=== PATIENT | male | born 1945 | race Caucasian/White ===

== ENCOUNTER → 2017-10-20 | Outpatient (CLI) | payer MEDICARE, OTHER ==
[~2017-10-20] MED LIST: ASCO500 PO; Advil200 M1 PO; DOCU100 PO; FLONASE ALLERG9.9 ML NS; Fish Oil Conce1 EACH PO; Glucosamine Ch1 EAC4 PO; HYDCHL12.5 PO; MAGCHL64ER; MELA3 PO; Metamucil Smooth1 EA PO; PROAIR RESPICL90 MCG; Prinivil10 MG PO; Ranitidine HCl300 M1 PO; Vitamin D2000 UNIT PO
== END | disposition home or self-care (01) ==
LOC: LAB SHORT 07:44 → PLD 07:44
DX: L72.0 Epidermal cyst (principal)
CPT/HCPCS: 88304

== ENCOUNTER 2017-12-31 08:20 | Day surgery (SDC) | payer MEDICARE, OTHER ==
[~2017-12-31] VITALS: Ht 172.7 cm; Wt 96.7 kg
== END 2017-12-31 10:44 | disposition home or self-care (01) ==
LOC: ORSCSDS 08:20
PROVIDERS: Internal Medicine Gastroenterology
PROC: 0DBH8ZX Excision of Cecum, Via Natural or Artificial Opening Endoscopic, Diagnostic (ICD-10-PCS; principal; 2017-12-31 09:45)
PROC: 0DBM8ZX Excision of Descending Colon, Via Natural or Artificial Opening Endoscopic, Diagnostic (ICD-10-PCS; principal; 2017-12-31 09:45)
PROC: 0DBN8ZX Excision of Sigmoid Colon, Via Natural or Artificial Opening Endoscopic, Diagnostic (ICD-10-PCS; principal; 2017-12-31 09:45)
DX: Z12.11 Encounter for screening for malignant neoplasm of colon (principal); Z86.010 Personal history of colon polyps; D12.0 Benign neoplasm of cecum; D12.4 Benign neoplasm of descending colon; D12.5 Benign neoplasm of sigmoid colon; K57.30 Diverticulosis of large intestine without perforation or abscess without bleeding; K59.00 Constipation, unspecified; I10 Essential (primary) hypertension; Z79.899 Other long term (current) drug therapy
CPT/HCPCS: 88305; J7120

== ENCOUNTER 2019-06-17 06:09 | Day surgery (SDC) | payer MEDICARE, OTHER ==
[~2019-06-17] VITALS: Ht 172.7 cm; Wt 95.0 kg
--- NOTE | 2019-06-17 08:40 | NUR ---
06/17/19 0840 Juanita Hunt PT WITH OWN SLING FOR HOME FROM LAST SURGERY.
[2019-07-07] MEDS ORDERED: FURO20 PO (09:43)
[2019-07-07] MEDS ORDERED: POTA10T PO (09:44)
== END 2019-06-17 08:41 | disposition home or self-care (01) ==
LOC: ORSCSDS 06:09
PROVIDERS: Orthopaedic Surgery
PROC: 01N50ZZ Release Median Nerve, Open Approach (ICD-10-PCS; principal; 2019-06-17 07:30)
DX: G56.01 Carpal tunnel syndrome, right upper limb (principal); I10 Essential (primary) hypertension; J45.909 Unspecified asthma, uncomplicated; Z79.899 Other long term (current) drug therapy
CPT/HCPCS: J2250; J2704; J3010; J7120

== ENCOUNTER 2019-07-29 11:27 | Day surgery (SDC) | payer MEDICARE, OTHER ==
[~2019-07-29] VITALS: Ht 172.7 cm; Wt 94.4 kg
[~2019-07-29 11:27] MED LIST changes: +FURO20 PO; -MAGCHL64ER; +MAGCHL64ER PO; +POTA10T PO
--- NOTE | 2019-07-29 12:11 | NUR ---
INTO MERGED WITH [facility] ADMISSION TO UNIT STARTED. Ambulatory in Day Surgery Surgical site prepped with 2% Chlorhexidine cloth wipe. History, Chart, Medications and Allergies reviewed before start of procedure.Lungs clear T/O to Auscultation. Patient confirms NPO status and agrees with scheduled surgery.
--- NOTE | 2019-07-29 19:00 | NUR ---
PATIENT ADMIN OXY 5 MG PO AND DILAUDID 0.5MG IV FOR C/O PAIN 01/06. NOW REPORTS PAIN 11/08. STATES NOT NORMAL SENSATION, 'BUT IT'S COMING BACK.' TOLERATING PO. VSS. DRESSING TO R KNEE D&I. PAS AND ICE IN PLACE. WIGGLES FEET. PATIENT STATES HE FEELS IF HE'LL BE READY TO URINATE 'PRETTY SOON.' NO ACUTE CHANGES. REPORT TO NOC RN.
[2019-07-30 06:33] LABS: BASOPHILS ABSOLUTE AUTO 0.01 K/mm3 (0.00-0.23); BASOPHILS PERCENT AUTO 0 % (0-2); EOSINOPHILS PERCENT AUTO 0 % (0-6); Hematocrit 38.8 % (37.0-53.0); Hemoglobin 12.9 g/dL (13.5-17.5); IMMATURE GRAN ABSOLUTE AUTO 0.05 K/mm3 (0.00-0.10); IMMATURE GRAN PERCENT AUTO 0 % (0-1); LYMPHOCYTES ABSOLUTE AUTO 0.72 K/mm3 (0.84-5.20); LYMPHOCYTES PERCENT AUTO 6 % (21-46); MONOCYTES ABSOLUTE AUTO 0.83 K/mm3 (0.16-1.47); MONOCYTES PERCENT AUTO 6 % (4-13); Mean Corpuscular HGB 29.1 pg (26.0-34.0); Mean Corpuscular HGB Conc 33.2 g/dL (31.5-36.5); Mean Corpuscular Volume 88 fL (80-100); Mean Platelet Volume 10.6 fL (9.1-12.4); NEUTROPHILS ABSOLUTE AUTO 11.56 K/mm3 (1.96-9.15); NEUTROPHILS PERCENT AUTO 88 % (41-73); Platelet Count 200 K/mm3 (150-400); RDW Coefficient Variation 12.5 % (11.7-14.2); RDW Standard Deviation 39.8 fL (35.1-46.3); Red Blood Cell Count 4.43 M/mm3 (4.30-5.90); White Blood Cell Count 13.17 K/mm3 (4.00-11.30)
[2019-07-30 06:48] LABS: Anion Gap 7 mmol/L (6-16); Blood Urea Nitrogen 20 mg/dL (8-24); Bun/Creatinine Ratio 22.2 (12.0-20.0); CO2, Blood 26 mmol/L (21-32); Calcium, Blood 8.5 mg/dL (8.5-10.1); Chloride, Blood 104 mmol/L (98-108); Glomerular Filtration Rate >60 (60-); Glucose, Blood 115 mg/dL (70-99); Potassium, Blood 4.2 mmol/L (3.5-5.5); Sodium, Blood 137 mmol/L (136-145)
--- NOTE | 2019-07-30 07:35 | NUR ---
dr pruett by to see pt reports pain 10/08 in the r knee pt has swelling to the knee talked with pt about importance of using the polar pack whenever he is sitting or laying down aquacel is cdi no bruising noted pt to stay for pt/ot
--- NOTE | 2019-07-30 07:41 | NUR ---
SHIFT SUMMARY PT RESTED INFREQUENTLY T/O NIGHT. AAOX4. DISCOMFORT CONTROLLED WITH 10MG ROXICODONE Q4P + X1 0.5MG IV DILAUDID. NO NAUSEA/EMESIS. DRESSING TO RIGHT KNEE C/D/I WITH CRYOTHERAPY IN PLACE. PT UP TO RESTROOM THIS AM SBA WITH FWW, TOLERATED WELL. GOOD PO INTAKE + OUTPUT. PT SITTING UP IN BED AT THIS TIME WATCHING TV, NADN, WITH CALL LIGHT IN REACH. REPORT TO DAY SHIFT RN.
--- NOTE | 2019-07-30 09:03 | NUR ---
MEDS GIVEN SCHED PT DONE EATING BREAKFAST
[2019-07-30] MEDS ORDERED: Percocet 5-3251 EACH PO (10:39)
[2019-07-30] MEDS ORDERED: ASPI81CH PO (10:44)
[2019-07-30] MEDS ORDERED: CELE100 PO (10:44)
--- NOTE | 2019-07-30 11:15 | NUR ---
PT RESTING SITTING UP IN CHAIR EARLIER PT GOT UP WITHOUT CALLING AND HAD HIS PAS AND POLAR PACK ATTACHED
--- NOTE | 2019-07-30 12:00 | NUR ---
pt sitting up in chair eating luch
--- NOTE | 2019-07-30 12:53 | NUR ---
po oxy given 2 tab pre med for physical therapy pt s/o at bedside
--- NOTE | 2019-07-30 14:47 | NUR ---
discharge instructions reviewed with pt verbalized dressing supplies given no acute changes wc escort to car
--- NOTE | 2019-08-02 12:30 | NUR ---
08/02/19 1230 Jessica Huitron VERIFICATIONS: EDIT CHART.
== END 2019-07-30 14:46 | disposition home or self-care (01) ==
LOC: ORSCMMR 11:27 → ORD 12:45 → ORSCMMR 12:45 → ORD 13:00 → SURS 17:00 → ORSCMMR 07-30 14:46 → SURS 07-30 14:46
PROVIDERS: Orthopaedic Surgery
PROC: 0SRC0JA Replacement of Right Knee Joint with Synthetic Substitute, Uncemented, Open Approach (ICD-10-PCS; principal; 2019-07-29 13:15)
DX: M17.11 Unilateral primary osteoarthritis, right knee (principal); E78.5 Hyperlipidemia, unspecified; J45.909 Unspecified asthma, uncomplicated; K21.9 Gastro-esophageal reflux disease without esophagitis; Z79.899 Other long term (current) drug therapy
CPT/HCPCS: 36415; 73560-RT; 80048; 85025; 86850; 86900; 86901; 88300; 97110; 97116; 97161; C1776; J0171; J0690; J0735; J1100; J1170; J1885; J2250; J2370; J2405; J2704; J2795; J3010; J7120

== ENCOUNTER 2020-07-25 08:22 | Day surgery (SDC) | payer MEDICARE, OTHER ==
[~2020-07-25] VITALS: Ht 172.7 cm; Wt 94.4 kg
[~2020-07-25 08:22] MED LIST changes: +ASPI81CH PO; +CELE100 PO; +DAILY FIBER PO; +OMEP20ER PO; +Percocet 5-3251 EACH PO; +ZINC15 PO
--- NOTE | 2020-07-25 10:31 | NUR ---
Ambulatory in Day Surgery. Surgical site prepped with 2% Chlorhexidine cloth wipe. Solo Paws warming gown applied. History, Chart, Medications and Allergies reviewed before start of procedure.Lungs clear T/O to Auscultation. Patient confirms NPO status and agrees with scheduled surgery. Pre-Op teaching done. Pt verbalizes understanding. Patient States Post-Procedure ride home has been arranged. Patient reports completing Chlorhexadine shower X2 prior to admission to hospital.
--- NOTE | 2020-07-25 18:23 | NUR ---
SUMMARY RESTING IN BED, RATES PAIN AT 3/10, DENIES ANY NUMBNESS OR TINGLING, REPORTS HAVING FULL SENSATION ON BLE'S, VOIDED IN URINAL, DSG C/D/I, VSS, TOLERATING REGULAR DIET, NO ACUTE CHANGES THIS SHIFT.
[2020-07-26 04:30] LABS: BASOPHILS ABSOLUTE AUTO 0.02 K/mm3 (0.00-0.23); BASOPHILS PERCENT AUTO 0 % (0-2); EOSINOPHILS ABSOLUTE AUTO 0.03 K/mm3 (0.00-0.68); EOSINOPHILS PERCENT AUTO 0 % (0-6); Hematocrit 37.4 % (37.0-53.0); Hemoglobin 12.3 g/dL (13.5-17.5); IMMATURE GRAN ABSOLUTE AUTO 0.02 K/mm3 (0.00-0.10); IMMATURE GRAN PERCENT AUTO 0 % (0-1); LYMPHOCYTES ABSOLUTE AUTO 0.85 K/mm3 (0.84-5.20); LYMPHOCYTES PERCENT AUTO 10 % (21-46); MONOCYTES ABSOLUTE AUTO 0.63 K/mm3 (0.16-1.47); MONOCYTES PERCENT AUTO 7 % (4-13); Mean Corpuscular HGB 28.6 pg (26.0-34.0); Mean Corpuscular HGB Conc 32.9 g/dL (31.5-36.5); Mean Corpuscular Volume 87 fL (80-100); Mean Platelet Volume 10.5 fL (9.1-12.4); NEUTROPHILS ABSOLUTE AUTO 7.17 K/mm3 (1.96-9.15); NEUTROPHILS PERCENT AUTO 82 % (41-73); Platelet Count 193 K/mm3 (150-400); RDW Coefficient Variation 12.2 % (11.7-14.2); RDW Standard Deviation 39.1 fL (35.1-46.3); White Blood Cell Count 8.72 K/mm3 (4.00-11.30)
[2020-07-26 04:48] LABS: Anion Gap 7 mmol/L (6-16); Blood Urea Nitrogen 17 mg/dL (8-24); Bun/Creatinine Ratio 19.1 (12.0-20.0); CO2, Blood 26 mmol/L (21-32); Calcium, Blood 8.6 mg/dL (8.5-10.1); Chloride, Blood 101 mmol/L (98-108); Creatinine, Blood 0.89 mg/dL (0.60-1.20); Glomerular Filtration Rate >60 (60-); Glucose, Blood 121 mg/dL (70-99); Potassium, Blood 4.5 mmol/L (3.5-5.5); Sodium, Blood 134 mmol/L (136-145)
--- NOTE | 2020-07-26 04:48 | NUR ---
SHIFT SUMMARY: PT POD#1 FOR LEFT TKA. A&O X4. VS WNL. JANICE WRAP AND AQUACEL DRESSING C/D/I WITH POLAR PACK IN PLACE. PT DENIES N/T. ABLE TO WIGGLE TOES. CAP REFILL WNL WITH PALPABLE PULSE. PAIN BEING MANAGED WITH 5MG OXY AND SCHEDULED TORADOL AND TYLENOL. PT OUT OF BED TO BATHROOM SEVERAL TIMES WITH SBA AND FWW. VOIDING WELL. KENNEY PO. DENIES N/V. SALINE LOCKED BETWEEN IV ABX. PLAN FOR PHYSICAL THERAPY AND POSSIBLE DISCHARGE.
[2020-07-26] MEDS ORDERED: Percocet 5-3251 EACH PO (12:14)
[2020-07-26] MEDS ORDERED: ASPI81CH PO (12:15)
--- NOTE | 2020-07-26 14:39 | NUR ---
DISCHARGE SUMMARY PT A&OX4, VSS, LEFT FLOOR VIA WC WITH WASHING MACHINE INSTALLER, TO GO HOME WITH , WITH ALL PERSONAL POSSESSIONS INCLUDING DC PACKET, 1 NARC SCRIPT, 1 ASA 81 MG SCRIPT. DC INSTRUCTIONS PROVIDED. PT REP UNDERSTANDING THOSE INSTRUCTIONS INCLUDING FU WITH ORTHO SURGEON, DRESSING CHANGE IN 1 WK, OK TO SHOWER - NO TUB/JACUZZI, TCDB & I.S. AT HOME, SHORT FREQUENT AMBULATION WITH FWW. IV DC'D.
== END 2020-07-26 14:35 | disposition home or self-care (01) ==
LOC: SURS 08:22 → ORSCMMR 08:22 → ORD 09:45 → ORSCMMR 09:45 → SURS 13:19 → ORSCMMR 07-26 14:35
PROVIDERS: Orthopaedic Surgery
PROC: 0SRD0JA Replacement of Left Knee Joint with Synthetic Substitute, Uncemented, Open Approach (ICD-10-PCS; principal; 2020-07-25 09:45)
PROC: 8E0Y0CZ Robotic Assisted Procedure of Lower Extremity, Open Approach (ICD-10-PCS; principal; 2020-07-25 09:45)
DX: M17.12 Unilateral primary osteoarthritis, left knee (principal); E78.5 Hyperlipidemia, unspecified; Z79.899 Other long term (current) drug therapy
CPT/HCPCS: 27447; S2900; 36415; 73560-LT; 80048; 85025; 88300; 97110; 97116; 97161; A9270; A9270-GY; C1776; J0171; J0690; J0735; J1885; J2250; J2704; J2765; J2795; J3010; J7120

== ENCOUNTER 2021-11-22 06:11 | Emergency (ER) | payer MEDICARE, OTHER ==
[~2021-11-22] VITALS: Ht 172.7 cm; Wt 98.9 kg
[2021-11-22 07:36] LABS: Influenza A, PCR NEGATIVE (NEGATIVE); Influenza B, PCR NEGATIVE (NEGATIVE); Resp Syncytial Virus, PCR NEGATIVE (NEGATIVE); SARS-Cov-2 (COVID-19) PCR, MMC NEGATIVE (NEGATIVE)
[2021-11-22] MEDS ORDERED: PRED20 PO (07:55)
[2021-11-22] MEDS ORDERED: BENZ100A PO (07:55)
== END 2021-11-22 08:10 | disposition home or self-care (01) ==
LOC: ER 06:11
PROVIDERS: Emergency Medicine
DX: J40 Bronchitis, not specified as acute or chronic (principal); R04.2 Hemoptysis; J06.9 Acute upper respiratory infection, unspecified; Z20.822 Contact with and (suspected) exposure to COVID-19; Z79.82 Long term (current) use of aspirin; Z79.899 Other long term (current) drug therapy
CPT/HCPCS: 0241U; 71046; 99283-25

== ENCOUNTER → 2022-01-09 | Outpatient (CLI) | payer MEDICARE, OTHER ==
[~2022-01-09] MED LIST changes: +BENZ100A PO; +PRED20 PO
[2022-01-09 09:21] LABS: BASOPHILS ABSOLUTE AUTO 0.03 K/mm3 (0.00-0.23); BASOPHILS PERCENT AUTO 1 % (0-2); EOSINOPHILS ABSOLUTE AUTO 0.07 K/mm3 (0.00-0.68); EOSINOPHILS PERCENT AUTO 2 % (0-6); Hematocrit 45.3 % (37.0-53.0); Hemoglobin 15.4 g/dL (13.5-17.5); IMMATURE GRAN ABSOLUTE AUTO 0.01 K/mm3 (0.00-0.10); IMMATURE GRAN PERCENT AUTO 0 % (0-1); LYMPHOCYTES ABSOLUTE AUTO 0.79 K/mm3 (0.84-5.20); LYMPHOCYTES PERCENT AUTO 20 % (21-46); MONOCYTES ABSOLUTE AUTO 0.27 K/mm3 (0.16-1.47); MONOCYTES PERCENT AUTO 7 % (4-13); Mean Corpuscular HGB 29.8 pg (26.0-34.0); Mean Corpuscular Volume 88 fL (80-100); Mean Platelet Volume 10.1 fL (9.1-12.4); NEUTROPHILS ABSOLUTE AUTO 2.86 K/mm3 (1.96-9.15); NEUTROPHILS PERCENT AUTO 71 % (41-73); Platelet Count 189 K/mm3 (150-400); RDW Coefficient Variation 13.1 % (11.7-14.2); RDW Standard Deviation 41.5 fL (35.1-46.3); Red Blood Cell Count 5.16 M/mm3 (4.30-5.90); White Blood Cell Count 4.03 K/mm3 (4.00-11.30)
== END | disposition home or self-care (01) ==
LOC: LAB SHORT 09:17
PROVIDERS: Physician Assistant
DX: D72.819 Decreased white blood cell count, unspecified (principal)
CPT/HCPCS: 85025

== ENCOUNTER 2023-05-12 12:39 | Emergency (ER) | payer MEDICARE, OTHER ==
[~2023-05-12] VITALS: Ht 172.7 cm; Wt 102.1 kg
[2023-05-12 12:44] VITALS: BP 135/87
== END 2023-05-12 16:12 | disposition home or self-care (01) ==
LOC: ER 12:39
DX: T18.128A Food in esophagus causing other injury, initial encounter (principal); Z79.899 Other long term (current) drug therapy
CPT/HCPCS: 96372; 99283-25; A9270; J1610

== ENCOUNTER 2023-05-14 11:44 | Day surgery (SDC) | payer MEDICARE, OTHER ==
[~2023-05-14] VITALS: Ht 170.2 cm; Wt 93.5 kg
[2023-05-14 13:40] VITALS: BP 126/76
== END 2023-05-14 13:48 | disposition home or self-care (01) ==
LOC: ORSCSDS 11:44
PROVIDERS: Internal Medicine Gastroenterology
PROC: 0DB58ZX Excision of Esophagus, Via Natural or Artificial Opening Endoscopic, Diagnostic (ICD-10-PCS; principal; 2023-05-14 13:15)
PROC: 0D757ZZ Dilation of Esophagus, Via Natural or Artificial Opening (ICD-10-PCS; principal; 2023-05-14 13:15)
PROC: 0DB68ZX Excision of Stomach, Via Natural or Artificial Opening Endoscopic, Diagnostic (ICD-10-PCS; principal; 2023-05-14 13:15)
DX: R13.14 Dysphagia, pharyngoesophageal phase (principal); K31.7 Polyp of stomach and duodenum; K20.90 Esophagitis, unspecified without bleeding; K57.30 Diverticulosis of large intestine without perforation or abscess without bleeding; Z79.899 Other long term (current) drug therapy
CPT/HCPCS: 88305; 88342; J2704; J7120

== ENCOUNTER → 2023-07-07 | Outpatient (CLI) | payer MEDICARE, OTHER | LOC: LAB 10:31 → LAB SHORT 10:31 | DX: L81.4 Other melanin hyperpigmentation (principal); L82.1 Other seborrheic keratosis; D22.5 Melanocytic nevi of trunk; L57.0 Actinic keratosis; L08.9 Local infection of the skin and subcutaneous tissue, unspecified | CPT/HCPCS: 87070; 87077; 87186; 87205 ==

== ENCOUNTER 2023-07-30 11:47 | Day surgery (SDC) | payer MEDICARE, OTHER ==
[~2023-07-30] VITALS: Ht 170.2 cm; Wt 92.3 kg
[2023-07-30] MEDS ORDERED: MELA3 (12:01)
[2023-07-30 14:35] VITALS: BP 126/61
== END 2023-07-30 14:35 | disposition home or self-care (01) ==
LOC: ORSCSDS 11:47
DX: R13.14 Dysphagia, pharyngoesophageal phase (principal); K21.9 Gastro-esophageal reflux disease without esophagitis; K22.70 Barrett's esophagus without dysplasia; Z12.11 Encounter for screening for malignant neoplasm of colon; Z86.010 Personal history of colon polyps; D12.4 Benign neoplasm of descending colon; K57.30 Diverticulosis of large intestine without perforation or abscess without bleeding; I10 Essential (primary) hypertension; Z79.899 Other long term (current) drug therapy
CPT/HCPCS: 88305; J2704; J7120